=== PATIENT | male | born 1965 | race Caucasian/White ===

== ENCOUNTER → 2024-06-20 09:58 | Outpatient (BNVA) | payer OTHER, SELFPAY | PROVIDERS: PCP Nurse Practitioner; Visit Provider Nurse Practitioner | DX: Z12.5 Encounter for screening for malignant neoplasm of prostate (principal); R03.0 Elevated blood-pressure reading, without diagnosis of hypertension; R25.2 Cramp and spasm | CPT/HCPCS: 80053; 80061; 83735; 84443; 85025; G0103 ==